=== PATIENT | female | born 1945 | race Caucasian/White ===

== ENCOUNTER 2017-12-24 18:18 | Inpatient (IN) | payer MEDICARE, OTHER ==
[~2017-12-24] VITALS: Ht 162.6 cm; Wt 72.6 kg
[2017-12-24 19:09] LABS: Basophils # (auto) 0.1 uL; Eosinophils # (auto) 0.2 uL; Eosinophils % (auto) 2.9 % (0.0-7.0); Hemoglobin 12.1 g/dL (12.2-16.2); Lymphocytes # (auto) 1.5 uL; Lymphocytes % (auto) 25.2 % (10.0-50.0); Mean Corpuscular Hemoglobin 31.7 pg (28.0-32.0); Mean Corpuscular Hgb Conc. 33.5 g/dL (32.0-36.0); Mean Corpuscular Volume 94.5 fL (80.0-100.0); Monocytes # (auto) 0.6 uL; Monocytes % (auto) 10.8 % (0.0-12.0); Neutrophils # (auto) 3.6 uL; Neutrophils % (auto) 60.1 % (37.0-80.0); Nucleated Red Blood Cells % 0.1 %; Platelet Count (auto) 261 10^3/uL (140-450); Red Blood Cells 3.81 10^6/uL (4.0-5.20); Red Cell Distribution Width 13.4 % (11.8-14.3); White Blood Cell 5.9 10^3/uL (4.4-10.8)
[2017-12-24 19:28] LABS: Albumin 3.5 g/dL (3.4-5.0); Calcium 8.7 mg/dL (8.5-10.1); Potassium 4.1 mmol/L (3.5-5.1)
[2017-12-24 19:33] LABS: Bilirubin, Total 0.8 mg/dL (0.2-1.0); Total Protein 7.3 g/dL (6.4-8.2)
[2017-12-24 20:15] LABS: INR 1.08 (0.9-1.15); Partial Thromboplastin Time 27.7 sec (22.64-33.71); Prothrombin Time 11.8 sec (9.37-12.3)
[2017-12-24 20:25] LABS: Magnesium 2.1 mg/dL (1.6-2.6)
[2017-12-24] MEDS ORDERED: TRIA50CA38 PO (22:17)
[2017-12-24] MEDS ORDERED: GABA300C10 PO (22:17)
[2017-12-24] MEDS ORDERED: RALO60TA13 PO (22:17)
[2017-12-24] MEDS ORDERED: ATOR10TA PO (22:17)
[2017-12-24] MEDS ORDERED: APIX5TAB PO (22:17)
[2017-12-24] MEDS ORDERED: ASPI-231 PO (22:17)
[2017-12-24] MEDS ORDERED: LISI-275 PO (22:17)
[2017-12-24] MEDS ORDERED: OMEP20TA PO (22:17)
[2017-12-24] MEDS ORDERED: CARV6.2551 PO (22:17)
[2017-12-24] MEDS ORDERED: AMIO200T33 PO (22:17)
[2017-12-25] MEDS ORDERED: NITROGLYCERIN 0.4 MG SL TAB SL PRN (01:00)
[2017-12-25] MEDS ORDERED: TEMAZEPAM 15 MG CAP PO PRN (01:00)
[2017-12-25] MEDS ORDERED: HYDROcodone-ACET 5/325MG TAB PO PRN (01:00)
[2017-12-25] MEDS ORDERED: ACETAMINOPHEN 325 MG TAB PO PRN (01:00)
[2017-12-25] MEDS ORDERED: MORPHINE SULFATE 4 MG/ML SYR/VIAL IV PRN (01:00)
[2017-12-25] MEDS ORDERED: ONDANSETRON HCL 4 MG/2 ML VIAL IV PRN (01:00)
[2017-12-25 01:37] LABS: Hematocrit 35.1 % (36.0-46.0); Hemoglobin 11.7 g/dL (12.2-16.2)
[2017-12-25 07:41] LABS: Hematocrit 35.3 % (36.0-46.0)
[2017-12-25] MEDS ORDERED: FAMOTIDINE 20 MG TAB PO SCH (10:00)
[2017-12-25] MEDS ORDERED: LISINOPRIL 5 MG TAB PO SCH (10:00)
[2017-12-25] MEDS ORDERED: EVISTA 60 MG PO SCH (10:00)
[2017-12-25] MEDS ORDERED: APIXABAN 5 MG TAB PO SCH (10:00)
[2017-12-25] MEDS ORDERED: CARVEDILOL 3.125 MG TAB PO SCH (10:00)
[2017-12-25] MEDS ORDERED: TRIAMTERENE 37.5 MG PO SCH (10:00)
[2017-12-25] MEDS ORDERED: AMIODARONE HCL 200 MG TAB PO SCH (10:00)
[2017-12-25] MEDS ORDERED: RALOXIFENE HCL 60 MG TAB PO SCH (10:00)
[2017-12-25 13:03] VITALS: BP 129/70
[2017-12-25 14:44] VITALS: BP 105/62
[2017-12-25 15:31] VITALS: BP 111/59
[2017-12-25 16:30] VITALS: BP 111/59
[2017-12-25] MEDS ORDERED: ATORVASTATIN 20 MG TAB PO SCH (22:00)
[2017-12-25] MEDS ORDERED: PANTOPRAZOLE 40 MG/10 ML VIAL IV SCH (22:00)
== END 2017-12-25 16:30 | disposition home or self-care (01) | DRG 378 ==
LOC: EDBD 18:18 → ER 18:26 → TELE 18:27 → TELE-CENTR 12-25 11:28
PROVIDERS: ADMIT Nurse Practitioner; ATTEND Nurse Practitioner
DX: K92.0 Hematemesis (principal); D68.69 Other thrombophilia; I48.2 Chronic atrial fibrillation; E66.01 Morbid (severe) obesity due to excess calories; I11.9 Hypertensive heart disease without heart failure; G47.00 Insomnia, unspecified; E78.00 Pure hypercholesterolemia, unspecified; E78.5 Hyperlipidemia, unspecified; K21.9 Gastro-esophageal reflux disease without esophagitis; K59.00 Constipation, unspecified; Z79.01 Long term (current) use of anticoagulants; Z79.899 Other long term (current) drug therapy; Z68.27 Body mass index [BMI] 27.0-27.9, adult
CPT/HCPCS: 36415; 36600; 71045; 80053; 82805; 83735; 83880; 84484; 85014; 85018; 85025; 85610; 85730; 93005